=== PATIENT | female | born 1980 | race Hispanic/Latino ===

== ENCOUNTER 2025-01-24 21:56 | Emergency (ER) | payer SELFPAY ==
[2025-01-24 22:04] VITALS: BP 202/114
--- NOTE | 2025-01-24 23:32 | ED.GENMED ---
History of Present Illness
General
Chief Complaint: Musculo-Skeletal Complaint
Source: patient
Exam Limitations: none
Time Seen by Provider: 01/24/25 23:29
Nursing documentation reviewed up to this point in time: agreed with
History of Present Illness
History of Present Illness:
Note:
CHIEF COMPLAINT(S)
Hand injury with associated pain.
HISTORY OF PRESENT ILLNESS
The patient is a 44-year-old female with pmh of htn on clonidine HCL presents tot the ER today with concerns of a right hand injury. She reports that the injury occurred accidentally. She reports hitting her hand on the side of the sink and has had
persistent discomfort since. Did improve with ibuprofen. The pain is localized around the middle of the hand, with with no pain reported in the wrist and extending down towards the elbow. Earlier, she also experienced dizziness which she usually
experiences when her blood pressure is high. She ran out of her clonidine which she states was prescribed to her during a previous ER visit. She currently does not have a family doctor who she sees for blood pressure management. She does not have
insurance. The patient takes medication for high blood pressure, which she typically administers once daily in the morning.She denies headache, chest pain, shortness of breath, loss of sensation in her upper extremity, fevers. She reports that the
dizziness lasts a few seconds, no dizziness at present.
CHRONIC MEDICAL CONDITIONS SIGNIFICANTLY AFFECTING CARE
The patient has a history of hypertension.
MEDICATIONS
The patient is currently prescribed medication for high blood pressure, which she takes every morning. The prescribing source was not explicitly mentioned.
REVIEW OF SYSTEMS
- Musculoskeletal: Pain localized in the hand
- Neurological: Patient reports dizziness.
- Cardiovascular: History of high blood pressure; medication compliance verified.
PHYSICAL EXAM
General: Alert, no acute distress.
Skin: Warm, dry.
Head: Normocephalic, atraumatic.
Neck: Supple, trachea midline.
Eye Ears, nose, mouth and throat: Oral mucosa moist.
Cardiovascular: regular rate and rhythm, no murmurs. Normal peripheral perfusion, No edema.
Respiratory: Respirations are non-labored
Gastrointestinal: Abdomen nondistended.
Back: Normal range of motion, Normal alignment.
Musculoskeletal: Normal range of motion, normal strength.Mild tenderness noted over the distal third meta carpal, no tenderness over the phalanges, no tenderness over the bones of the wrist. No palpable bony deformity. Full range of motion of the
digits, wrist, and elbow. No overlying erythema.
Neurological: CN II-XII intact. Alert and oriented to person, place, time, and situation, No focal neurological deficit observed.
Psychiatric: Cooperative, appropriate mood & affect.
PLAN
An X-ray of the hand will be performed to rule out any fractures. Blood work and an electrocardiogram (EKG) might be checked as part of the assessment process.
DIFFERENTIAL DIAGNOSIS
The Differential Diagnosis includes, in no particular order and is not limited to:
1. Fracture
2. Tendonitis
3. Ligament sprain
4. Carpal tunnel syndrome
5. Radial nerve injury
6. Peripheral neuropathy
7. Hypertension-related symptoms
8. Muscular strain
9. Synovitis
10. Osteoarthritis
CHART REVIEW
Review [employer], no prior ER physician documentation to review
No external medical summary for review
MDM/DISPOSITION
44-year-old female with past medical history of high blood pressure presents to the ER today with concerns of right hand pain after hitting it on a sink. On physical exam, she has tenderness over the third metacarpal before range of motion
neurovascularly intact. She also complained of transient dizziness related to her blood pressure being high however her blood pressure since come down without intervention and her dizziness has resolved. He has a nonfocal neurologic exam.
Previously was on clonidine but has run out. Will start dose of amlodipine. Patient is no primary care provider. Will refer to clinic. Blood work unremarkable. Patient stable for discharge. Suspect essential hypertension. Suspect hand
contusion. Patient stable for discharge. Reviewed x-ray images with ED attending
Review of Systems
Review of Systems
All Other Systems: ROS reviewed and negative except as documented in HPI and ROS
Phy Exam
Physical Exam
Physical Exam:
see hpi
Course
Orders/Labs/Results
Orders:
Orders
01/24/25 23:42
EKG- Treatment ONCE
Complete Blood Count/With Diff Urgent
Comprehensive Metabolic Panel Urgent
CR Hand - Right 2 Views Urgent
Comment:
Reason For Exam: right middle metacarpal pain
CR Wrist - Right Min 3 Views Urgent
Comment:
Reason For Exam: right wrist pain
01/24/25 23:43
Cardiac Monitoring- Treatment ONCE
01/24/25 23:44
Acetaminophen [Tylenol] 1,000 mg PO NOW STA
01/25/25
Electrocardiogram (*1) Stat
Reason for Study: Chest Pain
Abnormal Lab Results
01/25/25
00:27
RBC 4.11 L 10^6/uL
(4.20-5.40)
Hct 34.2 L %
(37.0-47.0)
Abs Immat Gran (auto) 0.1 H 10^3/uL
(0-0.05)
Immature Gran % 0.9 H %
(0-0.5)
Chloride 109 H mmol/L
(98-107)
Creatinine 0.5 L mg/dL
(0.6-1.0)
01/25/25 00:27
01/25/25 00:27
Vital Signs
Initial and Last Documented VS:
Initial Vital Signs
Temp Pulse Resp BP Pulse Ox
97.5 F 69 16 202/114 100
01/24/25 22:04 01/24/25 22:04 01/24/25 22:04 01/24/25 22:04 01/24/25 22:04
Last Documented Vital Signs
Temp Pulse Resp BP Pulse Ox
97.5 F 67 22 155/98 96
01/24/25 22:04 01/25/25 02:00 01/25/25 02:00 01/25/25 02:00 01/25/25 02:00
*Pulse Oximetry
SaO2: 100
Oxygen Mode of Delivery: Room air
Patient hypoxic: no
*Critical Care Note
Total Time (30-74mins, 75-104mins- exclusive of procedures): Not Applicable
ED Attending Note
-
Portions of this chart may have been created with voice recognition software.� Occasional wrong word or��sound alike� substitutions may have occurred due to the inherent limitations of voice recognition software.
Discharge Plan
Departure
Patient Disposition: Home (Routine Discharge)
Date of Disposition: 01/25/25
Time of Disposition: 01:52
Patient with high blood pressure during this ER visit?: Yes
Condition: Good
Discharge Problem:
Contusion of hand, right, Essential hypertension
Instructions: Contusion (DC), BLOOD PRESSURE
Prescriptions:
New
amlodipine 5 mg tablet
5 mg PO DAILY Qty: 30 0RF
No Action
clonidine HCl 0.2 mg Tablet
0.2 mg PO DAILY
Referrals:
[facility] - Call in 1-3 days for appt
NONE,* [Family Provider, Internal Medicine]
Activity Restrictions/Additional Instructions:
Please continue to take Tylenol and Motrin as needed for your symptoms for the next few days.
Please stop taking the clonidine. Please start taking amlodipine. Please take one tablet once daily and please follow up with the free clinic for continued management of your blood pressure.
PLEASE RETURN TO THE ER SHOULD YOU DEVELOP AN ACUTE WORSENING OF YOUR SYMPTOMS, DIZZINESS, CHEST PAIN, SHORTNESS OF BREATH, LOSS OF SENSATION IN YOUR HAND, INABILITY TO RANGE YOUR HAND, OR ANY OTHER SIGNS OR SYMPTOMS WORRISOME TO YOU.

Contin�e tomando Tylenol y Motrin seg�n sea necesario para aliviar jean paul s�ntomas mynor los pr�ximos d�as.
Deje de lashanda la clonidina. Comience a lashanda amlodipino. Danielson jeanne tableta jeanne vez al d�a y acuda a la cl�pavel gratuita para el control continuo de de souza presi�n arterial.
Si experimenta un empeoramiento repentino de jean paul s�ntomas, mareos, dolor en el pecho, dificultad para respirar, p�rdida de sensibilidad en la mano, incapacidad para gizzard skin remover la mano o cualquier otro signo o s�ntoma que le preocupe, regrese a urgencias.
Interventions
Interventions:
*Risk Screen - Suicide Last Done: 01/24/25 22:04
*General Assessment Last Done: 01/24/25 22:04
*Neglect/Abuse Screening Last Done: 01/24/25 22:04
*ED COVID-19 Vaccine History Last Done: 01/24/25 22:04
*ED Influenza Vaccine History Last Done: 01/24/25 22:04
*Nursing Disposition Last Done: 01/25/25 02:09
ED-Musculoskeletal Assessment Last Done: 01/25/25 02:10
Discharge Date and Time
Discharge Date/Time: 01/25/25 02:25
Print Language: ETHIOPIAN
[2025-01-25] MEDS: TYLENOL 1000 MG PO (00:27)
[2025-01-25 00:29] VITALS: BP 177/98
[2025-01-25 00:42] LABS: Hematocrit 34.2 % (37.0-47.0); Hemoglobin 12.2 g/dL (12.0-16.0); Mean Corp Hgb Conc. 35.7 g/dL (33.0-37.0); Mean Corpuscular Volume 83.2 fL (81.0-99.0); Nucleated Red Blood Cells % 0 %; Platelet Count 351 10^3/uL (130-400); Red Cell Dist. Width 13.0 % (11.5-14.5)
[2025-01-25 01:00] VITALS: BP 158/105
[2025-01-25 01:05] LABS: ALT (SGPT) 24 U/L (0-35); AST (SGOT) 19 U/L (14-36); Albumin 4.3 g/dl (3.5-5.0); Alkaline Phosphatase 74 U/L (38-126); Blood Urea Nitrogen 13 mg/dl (7-17); Calcium 9.1 mg/dl (8.4-10.2); Carbon Dioxide 22 mmol/L (22-30); Chloride 109 mmol/L (98-107); Glucose 94 mg/dl (70-99); Potassium 3.9 mmol/L (3.5-5.1); Sodium 138 mmol/L (135-145); Total Protein 6.9 g/dl (6.3-8.2); eGFR > 60.00
[2025-01-25 02:00] VITALS: BP 155/98
== END 2025-01-25 02:25 | disposition home or self-care (01) ==
LOC: EMR 21:56
PROVIDERS: Physician Assistant; EMERGENCY PHYSICIAN Emergency Medicine
DX: S60.221A Contusion of right hand, initial encounter (principal); W22.09XA Striking against other stationary object, initial encounter; I10 Essential (primary) hypertension; Z59.71 Insufficient health insurance coverage; T46.5X6A Underdosing of other antihypertensive drugs, initial encounter; Z91.138 Patient's unintentional underdosing of medication regimen for other reason
CPT/HCPCS: 99284; 73110; 73120; 80053; 85025; 93005